=== PATIENT | male | born 1965 | race Two or more races ===

== ENCOUNTER 2017-07-20 06:39 | Day surgery (SDC) | payer BC ==
[~2017-07-20 06:39] MED LIST: Lactated Ringers 1,000 ML IV SCH; Sodium Chloride 0.9% 10 ML Syringe FLUSH PRN; Sodium Chloride 0.9% 2.5 ML Syringe FLUSH PRN; ceFAZolin 2 GM in Premix Bag 1 BAG IV ONE
[2017-07-20] MEDS ORDERED: Ondansetron 4 MG/2 ML SDV ONE (06:59)
[2017-07-20] MEDS ORDERED: Midazolam 1 MG/ML 2 ML SDV ONE (06:59)
[2017-07-20] MEDS ORDERED: fentaNYL 100 MCG/2 ML SDV ONE (06:59)
[2017-07-20] MEDS ORDERED: Propofol 200 MG/20 ML SDV ONE ×2 (06:59→07:17)
[2017-07-20] MEDS ORDERED: Dexamethasone 4 MG/ML 5 ML MDV ONE (06:59)
--- NOTE | 2017-07-20 07:11 | PCM.PREANE ---
Preanesthetic Assessment - Anesthesia/Transfusion/Family Hx Anesthesia History: Prior Anesthesia Without Reaction Family History of Anesthesia Reaction: No Transfusion History: No Prior Transfusion(s) Intubation History: Unknown - Review of Systems General: No Symptoms Pulmonary: No Symptoms Cardiovascular: No Symptoms Gastrointestinal: No Symptoms Neurological: No Symptoms Other: Reports: None - Physical Assessment NPO Status Date: 07/19/17 NPO Status Time: 23:00 O2 Sat by Pulse Oximetry: 97 Respiratory Rate: 16 Vital Signs: Last Vital Signs Temp 36.2 C 07/20/17 06:53 Pulse 77 07/20/17 06:53 Resp 16 07/20/17 06:53 BP 112/74 07/20/17 06:53 Pulse Ox 97 07/20/17 06:53 Height: 1.73 m Weight: 76.3 kg ASA Class: 2 Mental Status: Alert & Oriented x3 Airway Class: Mallampati = 2 Dentition: Reports: Normal Dentition Thyro-Mental Finger Breadths: 3 Mouth Opening Finger Breadths: 3 ROM/Head Extension: Full Lungs: Clear to Auscultation, Normal Respiratory Effort Cardiovascular: Regular Rate, Regular Rhythm - Allergies Allergies/Adverse Reactions: Allergies Allergy/AdvReac Type Severity Reaction Status Date / Time No Known Allergies Allergy Verified 07/18/17 11:01 - Blood Blood Available: No - Anesthesia Plan Pre-Op Medication Ordered: None - Acknowledgements Anesthesia Type Planned: MAC (possible general anesthesia) Pt an Appropriate Candidate for the Planned Anesthesia: Yes Alternatives and Risks of Anesthesia Discussed w Pt/Guardian: Yes Pt/Guardian Understands and Agrees with Anesthesia Plan: Yes PreAnesthesia Questionnaire - Past Health History Medical/Surgical History: Denies Medical/Surgical History HEENT History: Reports: None Other HEENT History: wears glasses, current left neck mass, has upper permanent partial denture Cardiovascular History: Reports: None Respiratory History: Reports: None Gastrointestinal History: Reports: None Genitourinary History: Reports: None Musculoskeletal History: Reports: None Other Musculoskeletal History: hx of fx right arm as a child Neurological History: Reports: None Psychiatric History: Reports: None Endocrine/Metabolic History: Reports: None Hematologic History: Reports: None Immunologic History: Reports: None Oncologic (Cancer) History: Reports: None Other Oncologic History: recent dx of squamous tonsillar cancer Dermatologic History: Reports: None - Infectious Disease History Infectious Disease History: Reports: None - Past Surgical History HEENT Surgical History: Reports: Tonsillectomy Other Respiratory Surgeries/Procedures: recent bronchoscopy, laryngoscopy GI Surgical History: Reports: EGD - SUBSTANCE USE Smoking Status *Q: Never Smoker Recreational Drug Use History: No - HOME MEDS Home Medications: Home Meds . [No Known Home Meds] 10/06/16 [History] - CURRENT (IN HOUSE) MEDS Current Meds: Current Medications Lactated Ringer's (Ringers, Lactated) 1,000 mls @ 125 mls/hr IV ASDIRECTED JOSE Last Admin: 07/20/17 06:54 Dose: 125 mls/hr Sodium Chloride (Saline Flush) 10 ml FLUSH ASDIRECTED PRN PRN Reason: Keep Vein Open Sodium Chloride (Saline Flush) 2.5 ml FLUSH ASDIRECTED PRN PRN Reason: Keep Vein Open Discontinued Medications Dexamethasone (Dexamethasone) Confirm Administered Dose 20 mg .ROUTE .STK-MED ONE Stop: 07/20/17 07:00 Fentanyl (Sublimaze) Confirm Administered Dose 100 mcg .ROUTE .STK-MED ONE Stop: 07/20/17 07:00 Cefazolin Sodium/Dextrose 2 gm (/ Premix) 50 mls @ 100 mls/hr IV ONETIME ONE Stop: 07/19/17 17:54 Lidocaine HCl (Xylocaine-Mpf 1%) Confirm Administered Dose 5 ml .ROUTE .STK-MED ONE Stop: 07/20/17 07:00 Midazolam HCl (Versed 1 Mg/Ml) Confirm Administered Dose 2 mg .ROUTE .STK-MED ONE Stop: 07/20/17 07:00 Ondansetron HCl (Zofran) Confirm Administered Dose 4 mg .ROUTE .STK-MED ONE Stop: 07/20/17 07:00 Propofol (Diprivan 20 Ml) Confirm Administered Dose 200 mg .ROUTE .STK-MED ONE Stop: 07/20/17 07:00
[2017-07-20] MEDS ORDERED: Heparin Sodium 100 Units/ML 3 ML Syringe ONE (07:16)
[2017-07-20] MEDS ORDERED: Bupivacaine 0.5% 10 ML SDV ONE (07:16)
[2017-07-20] MEDS ORDERED: Iopamidol 408 MG/ML 50 ML SDV ONE (07:17)
[2017-07-20] MEDS ORDERED: Lidocaine 1% 20 ML MDV ONE (07:17)
[2017-07-20] MEDS ORDERED: fentaNYL 100 MCG/2 ML SDV IVPUSH PRN (07:29)
--- NOTE | 2017-07-20 09:25 | PCM.OPNOTE ---
- General Post-Op/Procedure Note Date of Surgery/Procedure: 07/20/17 Operative Procedure(s): RIJ port Findings: RIJ port placement Pre Op Diagnosis: tonsillar cancer Post-Op Diagnosis: tonsillar cancer Anesthesia Technique: General LMA, MAC Primary Surgeon: Karyn Onofre Condition: Good Free Text/Narrative:: Intake & Output 07/19/17 07/20/17 07/20/17 22:59 06:59 14:59 Intake Total 700 Balance 700
--- NOTE | 2017-07-20 09:47 | CR ---
EXAMINATION: Portable chest radiograph. HISTORY: Port-A-Cath insertion. FINDINGS: The trachea is midline. The cardiomediastinal silhouette is within normal limits. No pulmonary infilt rates, effusions or pneumothorax. There is a right-sided portacatheter noted with tip in good positio n in the SVC. Osseous structures appear unremarkable. IMPRESSION: No acute cardiopulmonary process.
[2017-07-20 10:32] VITALS: BP 114/71
--- NOTE | 2017-07-21 00:11 | OR ---
SURGEON: TONYA MAI MD DATE OF PROCEDURE: 07/20/2017 PREOPERATIVE DIAGNOSIS: Tonsillar cancer. POSTOPERATIVE DIAGNOSIS: Tonsillar cancer. PROCEDURE PERFORMED: Right internal jugular Port-A-Cath placement. ANESTHESIA: MAC, LMA. FLUIDS: See anesthesia record. ESTIMATED BLOOD LOSS: 5 mL. FINDINGS: Right internal jugular Port-A-Cath placement. COMPLICATIONS: None. INDICATIONS: The patient is a 52-year-old male, who presents with tonsillar cancer and in need of a port for chemotherapy initiation. The patient and I discussed the procedure as well as expected perioperative course. We discussed the risks, including bleeding, infection, or damage to surrounding structures, including pneumothorax or hemothorax. The patient verbalized understanding and wishes to proceed. PROCEDURE IN DETAIL: The patient was brought into the OR and placed on the operating room table in supine position. A time-out was completed verifying the patient's name, age, date of , allergies, and procedure to be performed. General LMA anesthesia was induced. The ultrasound was brought in and I verified the vascular anatomy of the right side of the neck. I was able to identify the right internal jugular vein and right carotid. A photograph was taken. The neck was prepped and draped in the usual standard fashion and shoulder roll was placed under the patient's neck and arms tucked at the side. The patient was placed in Trendelenburg position. Using a sterile ultrasound, I reidentify the vascular anatomy of the right side of the neck. I anesthetized the area overlying the right internal jugular vein with 1% lidocaine plain. Under direct ultrasound guidance, I placed the finding needle into the right internal jugular vein. A brisk return of venous blood was obtained. A guidewire was then placed down the internal jugular vein to the vena cava. C-arm was brought in and verified placement of the guidewire in the correct location of the chest. I turned my attention to the right anterior chest. I anesthetized an area 2 fingerbreadths below the right lateral clavicle with 0.5% Marcaine plain and 1% lidocaine plain. A 4 cm incision was made with a 15 blade and I used cautery to dissect down to the level of the chest wall and created a subcutaneous pocket. Port-A- Cath tubing was tunnelled from the subcutaneous pocket site on the right chest up to the insertion site of my guidewire. A vascular sheath and dilator were used to dilate the vein over the guidewire. The guidewire and dilator were removed and the catheter tubing was placed down the vascular sheath. The vascular sheath was then pulled away and out of the patient. The catheter tubing was aspirated and found to have good return of venous blood. The catheter tubing was then pulled back into the superior vena cava under fluoroscopic guidance. X-ray was taken and saved. The catheter tubing was then trimmed to fit, was then trimmed to size and the Port-A-Cath device placed on the catheter tubing. The Port-A-Cath was aspirated with a Cooley needle and good venous blood return was obtained. The Port-A-Cath device was locked with 3 mL of heparinized saline. The port was then secured within the subcutaneous chest wall pocket using interrupted 2-0 Prolene sutures. The chest wall site was closed with interrupted 3-0 Vicryl in the subcutaneous layer and with a running 4-0 Monocryl suture to close the skin. The neck insertion site was closed with interrupted 4-0 Monocryl suture. Steri-Strips and sterile dressings were applied. ROLY AYOUB /[id number]
== END 2017-07-20 10:05 | disposition home or self-care (01) ==
LOC: MW.SDS 06:39
PROVIDERS: ATTEND Surgery
DX: C09.9 Malignant neoplasm of tonsil, unspecified (principal); M75.41 Impingement syndrome of right shoulder; Z90.89 Acquired absence of other organs; Z98.890 Other specified postprocedural states
CPT/HCPCS: 36561; 71010; 76000; C1788; J0690; J1100; J1642; J2250; J2405; J3010; J7120; 00532; J2704; Q9966

== ENCOUNTER 2017-07-29 06:51 | Day surgery (SDC) | payer BC ==
--- NOTE | 2017-07-29 07:23 | PCM.PREANE ---
Preanesthetic Assessment - Anesthesia/Transfusion/Family Hx Anesthesia History: Prior Anesthesia Without Reaction Family History of Anesthesia Reaction: No Transfusion History: No Prior Transfusion(s) Intubation History: Unknown - Review of Systems General: No Symptoms Pulmonary: No Symptoms Cardiovascular: No Symptoms Gastrointestinal: No Symptoms Neurological: No Symptoms Other: Reports: None - Physical Assessment NPO Status Date: 07/28/17 Height: 1.73 m Weight: 70.76 kg ASA Class: 2 Mental Status: Alert & Oriented x3 Airway Class: Mallampati = 2 Dentition: Reports: Bridge (central maxillary) ROM/Head Extension: Full Lungs: Clear to Auscultation, Normal Respiratory Effort Cardiovascular: Regular Rate, Regular Rhythm - Allergies Allergies/Adverse Reactions: Allergies Allergy/AdvReac Type Severity Reaction Status Date / Time No Known Allergies Allergy Verified 07/26/17 12:34 - Blood Blood Available: No - Anesthesia Plan Pre-Op Medication Ordered: None (tender on outside of L side of neck from surgical excision several weeks ago. No mass effect, no obvous fibrosis of tissue fixation. opens well and extends well, has bridge on maxillary incisors. ) - Acknowledgements Anesthesia Type Planned: General Anesthesia Pt an Appropriate Candidate for the Planned Anesthesia: Yes Alternatives and Risks of Anesthesia Discussed w Pt/Guardian: Yes Pt/Guardian Understands and Agrees with Anesthesia Plan: Yes PreAnesthesia Questionnaire - Past Health History Medical/Surgical History: Denies Medical/Surgical History HEENT History: Other HEENT History: wears glasses, current left neck mass, has upper permanent partial denture Cardiovascular History: Reports: None Respiratory History: Reports: None Gastrointestinal History: Reports: None Genitourinary History: Reports: None Musculoskeletal History: Reports: Fracture Other Musculoskeletal History: hx of fx right arm as a child Neurological History: Reports: None Psychiatric History: Reports: None Endocrine/Metabolic History: Reports: None Hematologic History: Reports: None Immunologic History: Reports: None Oncologic (Cancer) History: Other Oncologic History: recent dx of squamous tonsillar cancer Dermatologic History: Reports: None - Infectious Disease History Infectious Disease History: Reports: None - Past Surgical History HEENT Surgical History: Reports: Tonsillectomy Other Respiratory Surgeries/Procedures: recent bronchoscopy, laryngoscopy GI Surgical History: Reports: EGD - SUBSTANCE USE Smoking Status *Q: Never Smoker Recreational Drug Use History: No - HOME MEDS Home Medications: Home Meds . [No Known Home Meds] 10/06/16 [History] - CURRENT (IN HOUSE) MEDS Current Meds: Current Medications Lactated Ringer's (Ringers, Lactated) 1,000 mls @ 125 mls/hr IV ASDIRECTED JOSE Sodium Chloride (Saline Flush) 10 ml FLUSH ASDIRECTED PRN PRN Reason: Keep Vein Open Sodium Chloride (Saline Flush) 2.5 ml FLUSH ASDIRECTED PRN PRN Reason: Keep Vein Open Discontinued Medications Cefazolin Sodium/Dextrose 2 gm (/ Premix) 50 mls @ 100 mls/hr IV ONETIME ONE Stop: 07/28/17 14:27
[2017-07-29] MEDS ORDERED: Propofol 200 MG/20 ML SDV ONE ×2 (07:24→08:03)
[2017-07-29] MEDS ORDERED: Midazolam 1 MG/ML 2 ML SDV ONE ×2 (07:24→07:53)
[2017-07-29] MEDS ORDERED: fentaNYL 100 MCG/2 ML SDV ONE ×2 (07:24→07:53)
[2017-07-29] MEDS ORDERED: Succinylcholine/Normal Saline 200 MG/10 ML Syringe ONE (07:25)
[2017-07-29] MEDS ORDERED: Ondansetron 4 MG/2 ML SDV ONE (07:25)
[2017-07-29] MEDS ORDERED: Dexamethasone 4 MG/ML 5 ML MDV ONE (07:25)
[2017-07-29] MEDS ORDERED: Ketorolac 30 MG/ML SDV ONE (07:25)
--- NOTE | 2017-07-29 07:26 | PCM.SN ---
- Free Text/Narrative Note: Patient was seen in the pre-operative area the day of surgery. He is doing well. His port incision on the anterior chest and neck appear well healed with no signs of infection. The patient and I discussed the placement of a gastrostomy tube for enteral access as he will be undergoing radiation for his tonsilar cancer. He and I discussed percutaneous gastrostomy tube placement vs open gastrostomy tube placement. I and my partner will attempt this percutaneously first. If we are unable to pass the endoscope due to obstruction by his tonsilar mass we will convert to open. We discussed the risks including bleeding, infection, or damage to surrounding structures that may require a second operation. The patient verbalized understanding and wishes to proceed.
--- NOTE | 2017-07-29 07:29 | PCM.HPR ---
H & P Addendum review - H & P Addendum Review Date of Original H & P: 07/15/17 Date Reviewed: 07/29/17 Time Reviewed: 07:30 Patient was Examined: Changes Please Note any Changes: Well healed port a cath incision site.
[2017-07-29] MEDS ORDERED: Bupivacaine 0.5% 10 ML SDV ONE (07:35)
[2017-07-29] MEDS ORDERED: Lidocaine 1% 20 ML MDV ONE (07:38)
--- NOTE | 2017-07-29 08:26 | PCM.OPNOTE ---
- General Post-Op/Procedure Note Date of Surgery/Procedure: 07/29/17 Operative Procedure(s): Percutaneous gastrostomy tube Findings: Percutaneous gastrostomy tube placement in the antrum. Duodenitis noted in the duodenal bulb. Pre Op Diagnosis: Tonsilar cancer Post-Op Diagnosis: same Anesthesia Technique: MAC Primary Surgeon: Karyn Onofre EBL in mLs: 5 Condition: Good
--- NOTE | 2017-07-29 08:29 | PCM.OPNOTE ---
- General Post-Op/Procedure Note Date of Surgery/Procedure: 07/29/17 Operative Procedure(s): PEG tube placement Pre Op Diagnosis: SCCA of the tonsil Anesthesia Technique: General ET Tube (ASA OOO) Primary Surgeon: Kirit Marc Secondary Surgeon: Karyn Onofre Condition: Good Free Text/Narrative:: Dictation [id number]
--- NOTE | 2017-07-29 09:26 | OR ---
SURGEON: Kirit Marc M.D. DATE OF PROCEDURE: 07/29/2017 OPERATION PERFORMED: Esophagogastroduodenoscopy with directed placement of feeding gastrostomy. CO-SURGEON: Dr. Onofre. ANESTHESIA: General endotracheal. ASA CLASSIFICATION: III. 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 POSTOPERATIVE DIAGNOSIS: Squamous cell carcinoma of the tonsil. ESTIMATED BLOOD LOSS: Minimal. DESCRIPTION OF PROCEDURE: The patient was taken to the operating room and placed on the operating table in the supine position. Time-out was called for appropriate identification of the patient and procedure. General anesthesia was induced. The gastroscope was inserted into the mouth and advanced with minimal difficulty through the esophagus into the stomach. Appropriate position for the gastrostomy tube was noted and marked on the skin by Dr. Onofre. She will dictate her portion of the procedure. With the stomach insufflated, needle, and sheath were placed into the stomach. The guidewire was passed through this and the guidewire was grasped and withdrawn through the mouth. The feeding tube was then connected and inserted into the mouth and positioned into the stomach. The gastroscope was reinserted and the appropriate position was confirmed, and documented with multiple photographs. No bleeding was noted. The scope was further advanced into the duodenum. No acute ulcerations were noted. There was minimal duodenitis. The gastroscope was then carefully withdrawn aspirating the stomach and esophagus as the scope was withdrawn. I was briefly able to visualize the tumor. The gastroscope was then removed. The patient tolerated the endoscopic portion of the procedure well. Dr. Onofre will dictate her portion of the procedure. RYLAN / ANITRA /[id number]
[2017-07-29 10:01] VITALS: BP 98/72
--- NOTE | 2017-07-29 10:33 | OR ---
SURGEON: KARYN ONOFRE MD DATE OF PROCEDURE: 07/29/2017 PREOPERATIVE DIAGNOSIS: Tonsillar cancer. POSTOPERATIVE DIAGNOSIS: Tonsillar cancer. PROCEDURE PERFORMED: Percutaneous, endoscopically placed gastrostomy tube. ENDOSCOPIST: Dr. Kirit Marc. Surgeon: Dr. Karyn Onofre ANESTHESIA: General endotracheal anesthesia. ESTIMATED BLOOD LOSS: 5 mL. FINDINGS: Mild gastritis and duodenitis, PEG placement in the antrum with PEG at 3 cm on the skin. COMPLICATIONS: None. INDICATIONS: The patient is a 52-year-old male with recently diagnosed squamous cell cancer of the left tonsil. He will be undergoing radiation therapy as he is in need of a permanent enteral access. The patient and I discussed the need for a feeding tube. I explained the procedure, expected perioperative course, and risks including bleeding, infection, or damage to surrounding structures. The patient verbalized understanding and wishes to proceed. PROCEDURE IN DETAIL: The patient was brought into the OR and placed on the OR table in supine position. A time-out was completed verifying the patient's name, age, date of , allergies, and procedure to be performed. General endotracheal anesthesia was induced. Dr. Kirit Marc went to the head of the bed and placed a bite block in the patients mouth. A well lubricated endoscope was placed in the mouth and advanced under direct visualization to the level of the distal stomach. The stomach was transilluminated and I was able to see good penetration of light through the abdominal wall. This was marked with a marking pen and the abdomen prepped and draped. 1% lidocaine was used to anesthetize the area over my marked site. A needle was then passed through the abdominal wall into the stomach. This was visualized via the endoscope. I then slowly withdrew my needle back and aspirated on my way out. No air bubbles were noted. The trach was then anesthetized with 1% lidocaine. A needle with a sheath was passed under direct visualization into the antrum of the stomach. The needle was removed and a guidewire placed down the sheath. Dr. Marc grasped this with an endoscopic loop and pulled it out through the patient's mouth. The guidewire transversed through the abdominal wall into the stomach and out through the patient's mouth. The feeding tube was looped around this. Steady pressure was then applied to the guidewire at the level of the abdominal wall and the feeding tube pulled through the mouth down into the stomach and the bumper pulled tight against the antrum. The endoscope was placed back into the stomach and visualization of the bumper up against the antrum was noted. The feeding tube was placed in a snug fashion, so that the bumper was able to be spun without any tension, but did not have so much pressure that there was overdue tension/ischemia to the area. A bumper was placed across along the abdominal wall to hold the feeding tube in secure position. This was located at 3 cm on the skin. A photograph was taken of the antrum with the PEG tube in place. The scope was then advanced into the duodenal bulb, where mild gastric irritation was noted. A photograph was taken. The scope was then removed from the patient. The abdominal wall bumper was secured to the skin using 2-0 Prolene sutures. Dressings were applied. The patient tolerated the procedure well and was taken to PACU in stable condition. Please send a copy of this to Dr. Kirit DUNHAM / ANITRA /[id number]
== END 2017-07-29 09:55 | disposition home or self-care (01) ==
LOC: MW.SDS 06:51
PROVIDERS: ATTEND Surgery
DX: C09.9 Malignant neoplasm of tonsil, unspecified (principal); M75.41 Impingement syndrome of right shoulder; Z90.89 Acquired absence of other organs; Z98.890 Other specified postprocedural states
CPT/HCPCS: 43246; J1100; J1885; J2250; J2405; J3010; J7120; 00790; J2704

== ENCOUNTER 2018-02-09 06:29 | Day surgery (SDC) | payer BC ==
[~2018-02-09 06:29] MED LIST changes: +ceFAZolin 1 GM in Premix Bag 1 BAG IV ONE; -ceFAZolin 2 GM in Premix Bag 1 BAG IV ONE
--- NOTE | 2018-02-09 07:23 | PCM.PREANE ---
Preanesthetic Assessment - Anesthesia/Transfusion/Family Hx Anesthesia History: Prior Anesthesia Without Reaction Transfusion History: No Prior Transfusion(s) Intubation History: Unknown - Review of Systems General: No Symptoms Pulmonary: No Symptoms Cardiovascular: No Symptoms Gastrointestinal: No Symptoms Neurological: No Symptoms Other: Reports: None - Physical Assessment NPO Status Date: 02/08/18 O2 Sat by Pulse Oximetry: 97 Respiratory Rate: 16 Vital Signs: Last Vital Signs Temp 36.2 C 02/09/18 07:15 Pulse 83 02/09/18 07:15 Resp 16 02/09/18 07:15 BP 113/77 02/09/18 07:15 Pulse Ox 97 02/09/18 07:15 Height: 1.73 m Weight: 63.503 kg ASA Class: 2 Mental Status: Alert & Oriented x3 Dentition: Reports: Normal Dentition ROM/Head Extension: Full Lungs: Clear to Auscultation, Normal Respiratory Effort Cardiovascular: Regular Rate, Regular Rhythm - Allergies Allergies/Adverse Reactions: Allergies Allergy/AdvReac Type Severity Reaction Status Date / Time No Known Allergies Allergy Verified 02/06/18 12:12 - Blood Blood Available: No - Anesthesia Plan Pre-Op Medication Ordered: None - Acknowledgements Anesthesia Type Planned: MAC Pt an Appropriate Candidate for the Planned Anesthesia: Yes Alternatives and Risks of Anesthesia Discussed w Pt/Guardian: Yes Pt/Guardian Understands and Agrees with Anesthesia Plan: Yes PreAnesthesia Questionnaire - Past Health History Medical/Surgical History: Denies Medical/Surgical History HEENT History: Other HEENT History: wears glasses, has upper permanent partial Cardiovascular History: Reports: None Respiratory History: Reports: None Gastrointestinal History: Reports: None Genitourinary History: Reports: None Musculoskeletal History: Reports: Fracture Other Musculoskeletal History: hx of fx right arm as a child Neurological History: Reports: None Psychiatric History: Reports: None Endocrine/Metabolic History: Reports: None Hematologic History: Reports: None Immunologic History: Reports: None Oncologic (Cancer) History: Reports: Other (See Below) Other Oncologic History: squamous tonsillar cancer Dermatologic History: Reports: None - Infectious Disease History Infectious Disease History: Reports: None - Past Surgical History HEENT Surgical History: Reports: Tonsillectomy Other HEENT Surgeries/Procedures: bronchoscopy, laryngoscopy Other Respiratory Surgeries/Procedures: recent bronchoscopy, laryngoscopy GI Surgical History: Reports: EGD Other GI Surgeries/Procedures: gastrostomy tube placement - SUBSTANCE USE Smoking Status *Q: Never Smoker Recreational Drug Use History: No - HOME MEDS Home Medications: Home Meds . [No Known Home Meds] 02/08/18 [History] - CURRENT (IN HOUSE) MEDS Current Meds: Current Medications Lactated Ringer's (Ringers, Lactated) 1,000 mls @ 125 mls/hr IV ASDIRECTED JOSE Last Admin: 02/09/18 07:18 Dose: 125 mls/hr Sodium Chloride (Saline Flush) 10 ml FLUSH ASDIRECTED PRN PRN Reason: Keep Vein Open Sodium Chloride (Saline Flush) 2.5 ml FLUSH ASDIRECTED PRN PRN Reason: Keep Vein Open Discontinued Medications Cefazolin Sodium/Dextrose 1 gm (/ Premix) 50 mls @ 100 mls/hr IV ONETIME ONE Stop: 02/08/18 09:00
[2018-02-09] MEDS ORDERED: Propofol 200 MG/20 ML SDV ONE ×2 (07:42→07:48)
[2018-02-09] MEDS ORDERED: fentaNYL 100 MCG/2 ML SDV ONE (07:42)
[2018-02-09] MEDS ORDERED: Lidocaine 2% 5 ML SDV ONE (07:42)
[2018-02-09] MEDS ORDERED: Midazolam 1 MG/ML 2 ML SDV ONE (07:42)
[2018-02-09] MEDS ORDERED: Lidocaine 1% 20 ML MDV ONE (07:48)
[2018-02-09] MEDS ORDERED: ceFAZolin 1 GM Vial ONE (08:06)
[2018-02-09] MEDS ORDERED: Ondansetron 4 MG/2 ML SDV ONE (08:27)
[2018-02-09] MEDS ORDERED: Ketorolac 30 MG/ML SDV ONE (08:27)
--- NOTE | 2018-02-09 08:34 | PCM.OPNOTE ---
- General Post-Op/Procedure Note Date of Surgery/Procedure: 02/09/18 Operative Procedure(s): Port a cath and PEG removal Findings: RIJ port removed intact, peg removed intact Pre Op Diagnosis: Tonsillar cancer Post-Op Diagnosis: same Anesthesia Technique: MAC Primary Surgeon: Karyn Onofre Condition: Good
--- NOTE | 2018-02-09 08:53 | PCM.POSTAN ---
POST ANESTHESIA ASSESSMENT - MENTAL STATUS Mental Status: Alert - RESPIRATORY Respiratory Status: Respiratory Rate WNL - CARDIOVASCULAR CV Status: Pulse Rate WNL - GASTROINTESTINAL GI Status: No Symptoms - POST OP HYDRATION Hydration Status: Adequate & Stable
--- NOTE | 2018-02-09 08:53 | PCM48HPAN ---
Post Anesthesia Note - EVALUATION WITHIN 48HRS OF ANESTHETIC Vital Signs in Normal Range: Yes Patient Participated in Evaluation: Yes Respiratory Function Stable: Yes Airway Patent: Yes Cardiovascular Function Stable: Yes Hydration Status Stable: Yes Pain Control Satisfactory: Yes Nausea and Vomiting Control Satisfactory: Yes Mental Status Recovered: Yes Resp Rate: 10
[2018-02-09 10:35] VITALS: BP 114/65
--- NOTE | 2018-02-09 14:32 | OR ---
SURGEON: TONYA MAI MD DATE OF PROCEDURE: 02/09/2018 PREOPERATIVE DIAGNOSIS: Tonsillar cancer. POSTOPERATIVE DIAGNOSIS: Tonsillar cancer. PROCEDURE PERFORMED: Right internal jugular Port-A-Cath removal, percutaneous endoscopic gastrostomy tube removal. ANESTHESIA: MAC. FLUIDS: 700 mL crystalloid. ESTIMATED BLOOD LOSS: 5 mL. FINDINGS: Intact right internal jugular Port-A-Cath, intact PEG tubing. COMPLICATIONS: None. INDICATION: The patient is a 52-year-old male who has completed chemotherapy and radiation treatment for tonsillar cancer. He is here for a PEG tube and Port-A-Cath removal. We discussed the procedure, expected perioperative course, and the risks including bleeding, infection, or damage to surrounding structures. The patient verbalized understanding and wishes to proceed. PROCEDURE IN DETAIL: The patient was brought into the OR and placed on the OR table in supine position. A time-out was completed verifying the patient's name, age, date of , allergies, and procedure to be performed. Monitored anesthesia care was induced. The right chest and neck were prepped and draped in usual standard fashion. The area overlying his port device was anesthetized with 1% lidocaine plain. An incision was made with a 15 blade over his previous incision. Cautery was used to dissect down to the level of the subcutaneous fat. The scar capsule was opened sharply with the Metzenbaum scissors. I identified the 3 Prolene sutures I had used to anchor the port site to the chest wall. These were sharply cut and removed. All attachments to the scar capsule were then taken down sharply with a combination of cautery and Metzenbaum scissors. Once this was completely freed up, gentle pressure was applied, and the Port-A-Cath tubing as well as the port device were removed. Pressure was held at the right internal jugular vein for approximately 1 minute. Cautery was used to obtain hemostasis in the wound cavity. The wound was then closed with interrupted 3-0 Vicryl in the subcutaneous fat and a running 4-0 Monocryl stitch in the subcuticular space. Steri-Strips and sterile dressing were applied. The dressings were taken down, and we turned our attention to the PEG tube. The area around the PEG was prepped and draped. A steady pressure was applied to the PEG tubing and it was removed intact through the abdominal wall. The fistula site was lightly cauterized. The wound was hemostatic. It was then covered with Vaseline gauze and dry 4 x 4 dressing. The patient tolerated procedure well and was taken to PACU in stable condition. ROLY AYOUB /[id number] MTDD
== END 2018-02-09 11:05 | disposition home or self-care (01) ==
LOC: MW.SDS 06:29
PROVIDERS: ATTEND Surgery
DX: C09.9 Malignant neoplasm of tonsil, unspecified (principal); Z98.890 Other specified postprocedural states; Z90.89 Acquired absence of other organs; Z93.1 Gastrostomy status
CPT/HCPCS: 36590; J0690; J1885; J2250; J2405; J3010; J7120; J2704